=== PATIENT | female | born 1945 | race Caucasian/White ===

== ENCOUNTER 2022-08-14 06:26 | Observation (INO) ==
[2022-08-14] MEDS ORDERED: dilTIAZem HCl 5 MG/ML 5 ML VIAL IV STA (06:46)
[2022-08-14] MEDS ORDERED: STAT IV Infusion **Titration per Protocol STA (06:46)
--- NOTE | 2022-08-14 06:51 | Emergency Department Note ---
Impression & Plan Paroxysmal atrial fibrillation with RVR, Chest pain ED Provider Note NAME: CRISTINA CORNELIUS AGE: 77 SEX: F : 1945 ARRIVES VIA: Walk-In INFORMANT: Patient ED PROVIDER(S): Kvng Donaldson DO CHIEF COMPLAINT: irregular heart beat HPI: Patient is a 77-year-old female with a past medical history of A-fib and a Watchman procedure with 1 previous ablation performed back in 2018 that presents to the ER for irregular heartbeat. She notes she gets this sometimes about twice a month. Sometimes it resolves on her own. She notes she can feel the beats and she can feel her heart racing. It feels irregular. This started as she was sitting in the parking lot waiting to go into work about an hour ago. She notes the beats are slightly painful. She denies any shortness of breath arm or jaw pain. No belly pain, nausea, vomiting, or diarrhea. No dysuria, urgency, or frequency. No other exacerbating or remitting factors. PAST MEDICAL HISTORY:See Below PAST SURGICAL HISTORY:See Below FAMILY HISTORY:See Below SOCIAL HISTORY:See Below HOME MEDICATIONS:See Below ALLERGIES:See Below VITALS:See Below PHYSICAL EXAMINATION: GENERAL: Sitting up in bed, alert, well appearing, well nourished, no distress, non-toxic EYE EXAM: normal conjunctiva. OROPHARYNX: mucous membranes are moist LUNGS: Clear to auscultation. Normal chest wall mechanics HEART: Irregularly irregular S1 normal and S2 normal ABDOMEN: abdomen soft, non-tender, normo-active bowel sounds, no masses, no rebound or guarding. UPPER EXTREMITIES: upper extremities are grossly normal. LOWER EXTREMITIES: No pitting edema. NEURO EXAM: Normal sensorium, cranial nerves II-XII grossly intact, normal speech, no gross weakness of arms, no gross weakness of legs. MEDICAL DECISION MAKING: Patient is a 77-year-old female who presents the ER for feeling her heart race associated with an irregular heartbeat. IV was established blood work was obtained. She was placed on a Cardizem drip and bolus. Heart rate trended down from the 130s to the 90s. Labs show no significant leukocytosis or anemia. BMP along with LFTs bilirubin was unremarkable. Initial troponin was negative. Lipase was normal. Heart rate was in the 140s and she was placed on Cardizem drip and given a bolus. The trend down to the 90s. Remained in A-fib. She was updated bedside. Discussed with the hospitalist admitted for further work-up. Triage Nursing notes reviewed. Limited review of prior medical records performed Vital Signs: reviewed and remarkable for tachy Differential diagnosis: Cardiac ischemia, aortic dissection, pulmonary embolism, pneumothorax, pneumon ia, pericarditis, myocarditis, esophageal rupture, GERD, cholecystitis, pancreatitis, musculoskeletal, as well as other pathologies. ER treatment provided: See below Diagnostics interpreted by me include EKG and cardiac monitoring as listed below: -Cardiac Monitoring: An order was placed for continuous cardiac monitoring. The monitor shows a rate of 134 with AFIB rhythm. -ECG: A-fib rate of 112 Normal axis No PVCs QTc [address] wave changes in the inferior leads -Laboratory studies:Interpreted by me as stated above in MDM and shown below. Imaging studies: Xrays: As interpreted by me: Portable AP upright 1 view of the chest shows no focal infiltrate CTs show: none Consultation(s): As described in MDM Procedures:none Critical Care: I have personally spent 32 minutes of critical care time in the direct management of this patient. This includes bedside care, interpretation of diagnostic studies, and testing, discussion with consultants, patient, and family members, and other required patient management activities. This 32 minutes is in excess of all separately billable procedures. Past Med/Surg History Medical History Adhesion of abdominal wall Perforated bowel Presence of Watchman left atrial appendage closure device Sacral lesion Surgical History History of cardiac radiofrequency ablation History of herniorrhaphy Hx of appendectomy Status post cholecystectomy Social History Smoking Status: Never smoker Feels Safe at Home: Yes Allergies Allergies Allergy/AdvReac Type Severity Reaction Status Date / Time azithromycin [From Zithromax] Allergy Severe Bad rash Unverified 08/14/22 09:30 and hard time breathing moxifloxacin [From Avelox] Allergy Severe Bad rash Unverified 08/14/22 09:31 and hard time breathing lubiprostone [From Amitiza] AdvReac made her Unverified 08/14/22 09:33 sick Jasipda-VFQ-[id number] Reductase AdvReac loss of Unverified 08/14/22 09:35 Inhibitor muscle control- hard to walk Home Meds Home Medications Medication Instructions Recorded Confirmed aspirin 81 mg tablet,delayed 81 mg PO DAILY 08/14/22 08/14/22 release diltiazem HCl 120 mg 120 mg PO DAILY 08/14/22 08/14/22 capsule,extended release 24 hr (Cartia XT) glimepiride 1 mg tablet 1 mg PO DAILY 08/14/22 08/14/22 hydrochlorothiazide 25 mg tablet 25 mg PO DAILY 08/14/22 08/14/22 losartan 50 mg tablet 50 mg PO DAILY 08/14/22 08/14/22 magnesium oxide 400 mg PO DAILY 08/14/22 08/14/22 metformin 500 mg tablet,extended 1,000 mg PO QAM 08/14/22 08/14/22 release 24 hr metoprolol succinate 50 mg 50 mg PO DAILY 08/14/22 08/14/22 tablet,extended release 24 hr potassium chloride 10 mEq 30 meq PO BID 08/14/22 08/14/22 capsule,extended release Results & Data (ED) Vital Signs Vital Signs - 24 hr 08/14/22 06:32 08/14/22 06:50 08/14/22 06:50 Temperature 36.8 C Temperature Source Temporal Artery Scan Pulse Rate 112 H Pulse Rate from SpO2 Sensor Respiratory Rate 20 Respiratory Effort / Characteristics Non-Labored Non-Labored Spontaneous Respiratory Depth Normal Normal Respiratory Pattern Regular Blood Pressure 156/76 H Blood Pressure Mean 102 Pulse Oximetry 98 97 Oxygen Delivery Method Room Air Room Air Room Air Sepsis Recent Fever Within 48 Hours No Sepsis New/Unexplained Change in Mental Status N/A Sepsis Action Taken by Nursing No Action Required 08/14/22 06:52 08/14/22 07:00 08/14/22 07:06 Temperature Temperature Source Pulse Rate 136 H 113 H 109 H Pulse Rate from SpO2 Sensor 107 H Respiratory Rate 20 16 33 H Respiratory Effort / Characteristics Respiratory Depth Respiratory Pattern Blood Pressure Blood Pressure Mean Pulse Oximetry 97 Oxygen Delivery Method Room Air Sepsis Recent Fever Within 48 Hours Sepsis New/Unexplained Change in Mental Status Sepsis Action Taken by Nursing 08/14/22 07:06 08/14/22 07:30 08/14/22 07:30 Temperature Temperature Source Pulse Rate 97 H Pulse Rate from SpO2 Sensor 96 H Respiratory Rate 17 Respiratory Effort / Characteristics Respiratory Depth Respiratory Pattern Blood Pressure 163/116 H 144/84 H Blood Pressure Mean 131 104 Pulse Oximetry 98 Oxygen Delivery Method Room Air Sepsis Recent Fever Within 48 Hours Sepsis New/Unexplained Change in Mental Status Sepsis Action Taken by Nursing 08/14/22 08:00 08/14/22 08:00 08/14/22 08:30 Temperature Temperature Source Pulse Rate 93 H 103 H Pulse Rate from SpO2 Sensor 101 H 110 H Respiratory Rate 14 21 Respiratory Effort / Characteristics Respiratory Depth Respiratory Pattern Blood Pressure 151/121 H 192/139 H Blood Pressure Mean 131 156 Pulse Oximetry 97 98 Oxygen Delivery Method Sepsis Recent Fever Within 48 Hours Sepsis New/Unexplained Change in Mental Status Sepsis Action Taken by Nursing 08/14/22 08:37 08/14/22 08:31 08/14/22 08:31 Temperature Temperature Source Pulse Rate 99 H 106 H Pulse Rate from SpO2 Sensor 111 H Respiratory Rate Respiratory Effort / Characteristics Respiratory Depth Respiratory Pattern Blood Pressure 192/139 H Blood Pressure Mean 156 Pulse Oximetry 99 Oxygen Delivery Method Room Air Sepsis Recent Fever Within 48 Hours Sepsis New/Unexplained Change in Mental Status Sepsis Action Taken by Nursing 08/14/22 09:00 08/14/22 09:01 08/14/22 09:01 Temperature Temperature Source Pulse Rate 95 H 92 H Pulse Rate from SpO2 Sensor 91 H 89 Respiratory Rate 24 19 Respiratory Effort / Characteristics Respiratory Depth Respiratory Pattern Blood Pressure 168/92 H Blood Pressure Mean 117 Pulse Oximetry 96 99 Oxygen Delivery Method Room Air Room Air Sepsis Recent Fever Within 48 Hours Sepsis New/Unexplained Change in Mental Status Sepsis Action Taken by Nursing 08/14/22 09:30 08/14/22 09:31 08/14/22 09:31 Temperature Temperature Source Pulse Rate 89 94 H Pulse Rate from SpO2 Sensor 67 90 Respiratory Rate 13 13 Respiratory Effort / Characteristics Respiratory Depth Respiratory Pattern Blood Pressure 192/92 H Blood Pressure Mean 125 Pulse Oximetry 95 98 Oxygen Delivery Method Room Air Room Air Sepsis Recent Fever Within 48 Hours Sepsis New/Unexplained Change in Mental Status Sepsis Action Taken by Nursing 08/14/22 10:00 08/14/22 10:01 08/14/22 10:01 Temperature Temperature Source Pulse Rate 78 82 Pulse Rate from SpO2 Sensor 67 80 Respiratory Rate 12 16 Respiratory Effort / Characteristics Respiratory Depth Respiratory Pattern Blood Pressure 139/83 Blood Pressure Mean 101 Pulse Oximetry 97 98 Oxygen Delivery Method Room Air Room Air Sepsis Recent Fever Within 48 Hours Sepsis New/Unexplained Change in Mental Status Sepsis Action Taken by Nursing 08/14/22 10:30 08/14/22 10:31 08/14/22 10:31 Temperature Temperature Source Pulse Rate 82 84 Pulse Rate from SpO2 Sensor 89 79 Respiratory Rate 20 18 Respiratory Effort / Characteristics Respiratory Depth Respiratory Pattern Blood Pressure 171/91 H Blood Pressure Mean 117 Pulse Oximetry 96 98 Oxygen Delivery Method Room Air Room Air Sepsis Recent Fever Within 48 Hours Sepsis New/Unexplained Change in Mental Status Sepsis Action Taken by Nursing Laboratory Data 08/14/22 07:00 08/14/22 07:00 Lab Results 08/14/22 08/14/22 08/14/22 Range/Units 07:00 07:00 07:30 WBC 9.27 (4.8-10.8) K/ul RBC 4.75 (4.20-5.40) M/uL Hgb 13.8 (12.0-16.0) g/dl Hct 39.8 (37.0-47.0) % MCV 83.8 (80.0-100.0) fL MCH 29.1 (25.0-34.0) pg MCHC 34.7 (32.0-36.0) g/dL RDW Std Deviation 39.2 (36.4-46.3) fL RDW Coeff of Maribell 12.9 (11.5-14.5) % Plt Count 278 (130-400) K/uL MPV 10.2 (9.4-12.4) fL Immature Gran % (Auto) 0.4 % Neut % (Auto) 64.7 % Lymph % (Auto) 24.7 % [place] % (Auto) 7.8 % Eos % (Auto) 1.6 % Baso % (Auto) 0.8 % Neut # (Auto) 6.00 (1.40-6.50) K/uL Lymph # (Auto) 2.29 (1.2-3.4) K/uL [place] # (Auto) 0.72 H (0.11-0.59) K/uL Eos # (Auto) 0.15 (0-0.50) K/uL Baso # (Auto) 0.07 (0-0.2) K/uL Immature Gran # (Auto) 0.04 (0.01-0.20) K/uL Sodium 139 (136-145) mmol/L Potassium 3.6 (3.5-5.1) mmol/L Chloride 104 (98-107) mmol/L Carbon Dioxide 24 (21-32) mmol/L Anion Gap 11 (3-11) BUN 18 (6-23) mg/dl Creatinine 0.77 (0.6-1.2) mg/dl Est Cr Clr Drug Dosing 60.6 ml/min Est GFR ( Amer) 86.3 ml/min Est GFR (Non-Af Amer) 74.5 ml/min BUN/Creatinine Ratio 23.4 H (10-20) Glucose 215 H (70-99(Fasting)) mg/dl Calcium 10.2 (8.6-10.3) mg/dl Magnesium (1.7-2.4) mg/dl Total Bilirubin 0.4 (0.2-1.0) mg/dl AST 30 (13-39) U/L ALT 31 (7-52) U/L Alkaline Phosphatase 81 (34-104) U/L Troponin I High Sens 11.7 (0-14) pg/ml Total Protein 7.3 (6.0-8.3) gm/dl Albumin 4.5 (3.4-5.0) gm/dl Globulin 2.8 (2.5-4.0) gm/dl Albumin/Globulin Ratio 1.6 (0.9-2) Lipase 24 (11-82) U/L SARS-CoV-2, RNA, NAAT NEGATIVE (NEGATIVE) 08/14/22 Range/Units 10:25 WBC (4.8-10.8) K/ul RBC (4.20-5.40) M/uL Hgb (12.0-16.0) g/dl Hct (37.0-47.0) % MCV (80.0-100.0) fL MCH (25.0-34.0) pg MCHC (32.0-36.0) g/dL RDW Std Deviation (36.4-46.3) fL RDW Coeff of [place]ib[place] (11.5-14.5) % Plt Count (130-400) K/uL MPV (9.4-12.4) fL Immature Gran % (Auto) % Neut % (Auto) % Lymph % (Auto) % [place] % (Auto) % Eos % (Auto) % Baso % (Auto) % Neut # (Auto) (1.40-6.50) K/uL Lymph # (Auto) (1.2-3.4) K/uL [place] # (Auto) (0.11-0.59) K/uL Eos # (Auto) (0-0.50) K/uL Baso # (Auto) (0-0.2) K/uL Immature Gran # (Auto) (0.01-0.20) K/uL Sodium (136-145) mmol/L Potassium (3.5-5.1) mmol/L Chloride (98-107) mmol/L Carbon Dioxide (21-32) mmol/L Anion Gap (3-11) BUN (6-23) mg/dl Creatinine (0.6-1.2) mg/dl Est Cr Clr Drug Dosing ml/min Est GFR ( Amer) ml/min Est GFR (Non-Af Amer) ml/min BUN/Creatinine Ratio (10-20) Glucose (70-99(Fasting)) mg/dl Calcium (8.6-10.3) mg/dl Magnesium 1.8 (1.7-2.4) mg/dl Total Bilirubin (0.2-1.0) mg/dl AST (13-39) U/L ALT (7-52) U/L Alkaline Phosphatase (34-104) U/L Troponin I High Sens 17.6 H D (0-14) pg/ml Total Protein (6.0-8.3) gm/dl Albumin (3.4-5.0) gm/dl Globulin (2.5-4.0) gm/dl Albumin/Globulin Ratio (0.9-2) Lipase (11-82) U/L SARS-CoV-2, RNA, NAAT (NEGATIVE) Administered Medications Diltiazem HCl 125 mg/ Dextrose 125 mls @ 5 mls/hr IV .Q24H [facility]; Protocol Stop: 09/13/22 06:59 Last Titration: 08/14/22 08:54 Dose: 10 mg/hr, 10 mls/hr Documented By: PEE Co-signed By: Admin: 08/14/22 07:20 Dose: 5 mg/hr, 5 mls/hr Documented By: PEE Co-signed By: KATELYN Discontinued Medications Diltiazem HCl (Diltiazem Hcl 5 Mg/Ml 5 Ml Vial) 10 mg IV NOW STA Stop: 08/14/22 06:47 Last Admin: 08/14/22 07:20 Dose: 10 mg Documented By: PEE Co-signed By: KATELYN Miscellaneous (Stat Iv Infusion Titration Per Protocol) 1 each N/A NOW STA Stop: 08/14/22 06:47 Last Admin: 08/14/22 07:16 Dose: Not Given Documented By: PEE Imaging Data Radiologist's Impression: Chest X-Ray 08/14/22 06:37 XR chest 1V portable CLINICAL HISTORY: Chest pain, nonspecific COMPARISON STUDY: No previous studies for comparison. FINDINGS: Lung volumes are normal. There is no consolidation to suggest pneumonia. Linear bibasilar densities favor atelectasis. There is no pneumothorax or pleural effusion. There is mild cardiomegaly. Possible left atrial appendage occluder device in place. Mediastinal contours are normal. There is no evidence for pulmonary edema. IMPRESSION: No acute cardiopulmonary findings. ACT 112: Negative or not required by law. Electronically signed by: Joey Mckenna M.D. 08/14/2022 6:54 AM Discharge Plan Visit Data Chief Complaint: Tachycardia Stated Complaint: A FIB,HEART RATE UP AND DOWN MEDS NOT HELPING ED Provider: Kvng Donaldson Discharge Problem: Paroxysmal atrial fibrillation with RVR, Chest pain Forms Stand Alone Forms: My [facility] Prescriptions Prescriptions: No Action losartan 50 mg tablet 50 mg PO DAILY potassium chloride 10 mEq capsule, extended release 30 meq PO BID metoprolol succinate 50 mg tablet extended release 24 hr 50 mg PO DAILY aspirin 81 mg Tablet,Delayed Release (Dr/Ec) 81 mg PO DAILY glimepiride 1 mg tablet 1 mg PO DAILY diltiazem HCl [Cartia XT] 120 mg capsule,extended release 24hr 120 mg PO DAILY hydrochlorothiazide 25 mg tablet 25 mg PO DAILY metformin 500 mg tablet extended release 24 hr 1,000 mg PO QAM magnesium oxide 400 mg magnesium Tablet 400 mg PO DAILY Referrals Referrals: PCP,NO [Physician] -
--- NOTE | 2022-08-14 06:56 | XRay Report ---
XR chest 1V portable CLINICAL HISTORY: Chest pain, nonspecific COMPARISON STUDY: No previous studies for comparison. FINDINGS: Lung volumes are normal. There is no consolidation to suggest pneumonia. Linear bibasilar d ensities favor atelectasis. There is no pneumothorax or pleural effusion. There is mild cardiomegaly. Possible left atrial appendage occluder device in place. Mediastinal contours are normal. There is n o evidence for pulmonary edema. IMPRESSION: No acute cardiopulmonary findings. ACT 112: Negative or not required by law. Electronically signed by: Joey Mckenna M.D. 08/14/2022 6:54 AM
[2022-08-14] MEDS ORDERED: dilTIAZem HCL 125 MG in DEXTROSE 5% 100 ML IV SCH (07:00)
[2022-08-14 07:40] LABS: Basophils # (auto) 0.07 K/uL (0-0.2); Basophils % (auto) 0.8 %; Eosinophils # (auto) 0.15 K/uL (0-0.50); Eosinophils % (auto) 1.6 %; Hematocrit (blood only) 39.8 % (37.0-47.0); Hemoglobin 13.8 g/dl (12.0-16.0); Immature Granulocytes # (auto) 0.04 K/uL (0.01-0.20); Immature Granulocytes % (auto) 0.4 %; Lymphocytes # (auto) 2.29 K/uL (1.2-3.4); Lymphocytes % (auto) 24.7 %; Mean Corpuscular Hemoglobin 29.1 pg (25.0-34.0); Mean Corpuscular Hgb Conc 34.7 g/dL (32.0-36.0); Mean Corpuscular Volume 83.8 fL (80.0-100.0); Mean Platelet Volume 10.2 fL (9.4-12.4); Monocytes # (auto) 0.72 K/uL (0.11-0.59); Monocytes % (auto) 7.8 %; Neutrophils % (auto) 64.7 %; Platelet Count 278 K/uL (130-400); RDW Coefficient of Variation 12.9 % (11.5-14.5); RDW Standard Deviation 39.2 fL (36.4-46.3); Red Blood Count 4.75 M/uL (4.20-5.40); White Blood Count 9.27 K/ul (4.8-10.8)
[2022-08-14 07:44] LABS: Albumin Globulin Ratio 1.6 (0.9-2); Albumin Level 4.5 gm/dl (3.4-5.0); BUN Creatinine Ratio 23.4 (10-20); Bilirubin,Total 0.4 mg/dl (0.2-1.0); Calcium 10.2 mg/dl (8.6-10.3); Creatinine Clr Calc Pharmacy 60.6 ml/min; Est GFR (African American) 86.3 ml/min; Est GFR (Non-African American) 74.5 ml/min; Globulin 2.8 gm/dl (2.5-4.0); Potassium 3.6 mmol/L (3.5-5.1); Total Protein 7.3 gm/dl (6.0-8.3)
[2022-08-14 07:49] LABS: Troponin I High Sensitivity 11.7 pg/ml (0-14)
--- NOTE | 2022-08-14 08:47 | History & Physical Report ---
Date of Service August 14, 2022 Assessment & Plan (1) Paroxysmal atrial fibrillation with RVR: Plan: 77 year old [employer] with a past medical history of paroxysmal A Fib with ablation in 2007 and watchman procedure in July 2021, HTN, and DM who is also scheduled for an ablation 09/19/[address] Morris and a repeat ALBINA 10/18/[address] Angeles, here with rapid atrial fibrillation Admit to PCU - Consult cardiology - Echocardiogram - trend troponins - Increase Cartia XT to 180mg daily - Patient had the 120mg dose this AM, will add extra 30mg TID today with first dose now - Wean off cardizem drip - Monitor Potassium and Magnesium, labs (2) Diabetes: Plan: - Will hold home metformin and glimiperide - ISS while admitted - Pharmacy consult for glycemic control - HgbA1C with AM labs - Lantus 8U BID, Novolog sliding scal with correction factor 55 and carb ratio 18 (3) HTN (hypertension): Plan: BPs quite elevated on admission an dhave been high at times as an outpatient - Continue Losartan, metoprolol and HCTZ - Cartia XT changes as above Plan Admit to PCU SCD. ASA 81 mg daily plan to increase Cartia XT to 180mg Cardiology consult echo, trend troponin, cardiac monitoring History of Present Illness Chief Complaint: heart palpitations and chest pain Primary Care Provider: Jaciel Kelly Blossom Barrientos is a 77 year old with a past medical history of paroxysmal A Fib with ablation in 2007 and watchman procedure in July 2021, HTN, and DM who was waiting to go into work today when she began to experience irregular heart palpitations and chest discomfort. She states she gets the palpitations and A Fib episode approximately 2 x per month and follows with Dr Angeles and Dr Morris in [place] and is scheduled for an ablation September 19 and a ALBINA 10/18/22. Patients she went into work and had a RN check her and her heart rate was raising to 200 -210 and she was scared and had an aide take her here to the ER. She states when she has the episodes of the A Fib her chest hurts and her symptoms are worse with exertion. Patient was treated with Cardizem bolus and drip and currently hr rate is in mid to low 90s and she states she no longer has any further chest pain. Patient is not on any watermaster anticoagulation, s/p Watchman and also patient states she was unable to tolerate Eliquis an Plavix in the past. Allergies Allergy/AdvReac Type Severity Reaction Status Date / Time azithromycin [From Zithromax] Allergy Severe Bad rash Unverified 08/14/22 09:30 and hard time breathing moxifloxacin [From Avelox] Allergy Severe Bad rash Unverified 08/14/22 09:31 and hard time breathing lubiprostone [From Amitiza] AdvReac made her Unverified 08/14/22 09:33 sick Dyuwlkl-[id number] Reductase AdvReac loss of Unverified 08/14/22 09:35 Inhibitor muscle control- hard to walk Home Medications Medication Instructions Recorded Confirmed Type aspirin 81 mg tablet,delayed 81 mg PO DAILY 08/14/22 08/14/22 History release diltiazem HCl 120 mg 120 mg PO DAILY 08/14/22 08/14/22 History capsule,extended release 24 hr (Cartia XT) glimepiride 1 mg tablet 1 mg PO DAILY 08/14/22 08/14/22 History hydrochlorothiazide 25 mg tablet 25 mg PO DAILY 08/14/22 08/14/22 History losartan 50 mg tablet 50 mg PO DAILY 08/14/22 08/14/22 History magnesium oxide 400 mg PO DAILY 08/14/22 08/14/22 History metformin 500 mg tablet,extended 1,000 mg PO QAM 08/14/22 08/14/22 History release 24 hr metoprolol succinate 50 mg 50 mg PO DAILY 08/14/22 08/14/22 History tablet,extended release 24 hr potassium chloride 10 mEq 30 meq PO BID 08/14/22 08/14/22 History capsule,extended release Past Med/Surg History Medical History (Updated 08/14/22 @ 17:35 by Meaghan Mendoza MD) Adhesion of abdominal wall Diabetes HTN (hypertension) Paroxysmal A-fib Paroxysmal atrial fibrillation with RVR Perforated bowel Presence of Watchman left atrial appendage closure device Sacral lesion Surgical History History of cardiac radiofrequency ablation History of herniorrhaphy Hx of appendectomy Status post cholecystectomy Family History Other Family history non-contributory Social History Smoking Status: Never smoker Second Hand Exposure: No; Hx Alcohol Use: No Hx Substance Use: No Preferred Language: Turkish Communication Ability: Effective Quality Assurance Assessor Required: No Beliefs That Will Affect Care: None Current Living Situation: Family Feels Safe at Home: Yes Assistive Devices: Glasses Review of Systems Constitutional: + fatigue; no fever, no chills, no weakness, no weight loss and no weight gain Respiratory: no cough, no chest congestion, no dyspnea and no hemoptysis Cardiovascular: + chest pain and + palpitations; no radiating jaw, neck or arm pain, no lightheadedness, no syncope, no edema and no calf pain Gastrointestinal: no abdominal pain, no early satiety, no nausea, no vomiting and no change in bowel habits Genitourinary: no dysuria, no urinary frequency, no urinary hesitancy and no flank pain Musculoskeletal: hx of a sacral lesion that was recently biopsied and awaiting the results Integumentary: no rash, no lesions and no new lesions Neurologic: no falls, no paresthesia, no tremor(s), no seizure-like activity, no syncope and no headache(s) Psychiatric: no hopelessness, no anxiety, no panic attacks, no difficulty concentrating and no confusion Hematologic / Lymphatic: no easy bleeding, no easy bruising, no night sweats and no unexplained weight loss Allergy / Immunological: no urticaria, no cough and no dyspnea Physical Exam Constitutional: well developed, well nourished and cooperative; no acute distress Neck: trachea midline, no thyromegaly Respiratory: normal respiratory effort, lungs clear to auscultation Cardiovascular: Rate/Rhythm: + tachycardic and + irregularly irregular Extremities: normal capillary refill; no calf tenderness and no edema Gastrointestinal (Abdomen): normal bowel sounds, soft, nontender, no hepatosplenomegaly Skin: no rashes, warm and dry Psychiatric: A+Ox3, euthymic affect Results & Data Results & Data Vital Signs (Past 12 Hours) Vital Signs Temp Pulse Resp BP Pulse Ox O2 Del Method 08/14/22 08:37 99 H 08/14/22 08:30 103 H 21 192/139 H 98 08/14/22 08:00 93 H 14 97 06/21/23 08:00 151/121 H 08/14/22 07:30 97 H 17 98 Room Air 08/14/22 07:30 144/84 H 08/14/22 07:06 163/116 H 08/14/22 07:06 109 H 33 H 97 Room Air 08/14/22 07:00 113 H 16 08/14/22 06:52 136 H 20 08/14/22 06:50 Room Air 08/14/22 06:50 97 Room Air 08/14/22 06:32 36.8 C 112 H 20 156/76 H 98 Room Air Laboratory Results Abnormal lab results 08/14/22 08/14/22 Range/Units 07:00 07:00 [place] # (Auto) 0.72 H (0.11-0.59) K/uL BUN/Creatinine Ratio 23.4 H (10-20) Glucose 215 H (70-99(Fasting)) mg/dl Diagnostic Findings Chest X-Ray 08/14/22 06:37 XR chest 1V portable CLINICAL HISTORY: Chest pain, nonspecific COMPARISON STUDY: No previous studies for comparison. FINDINGS: Lung volumes are normal. There is no consolidation to suggest pneumonia. Linear bibasilar densities favor atelectasis. There is no pneumothorax or pleural effusion. There is mild cardiomegaly. Possible left atrial appendage occluder device in place. Mediastinal contours are normal. There is no evidence for pulmonary edema. IMPRESSION: No acute cardiopulmonary findings. ACT 112: Negative or not required by law. Electronically signed by: Joey Mckenna M.D. 08/14/2022 6:54 AM ECG Additional Comments: ECG with Afib, rate 112, ST depression in leads 1 and aVL Code Status & VTE Plan Code Status FULL CODE VTE Prophylaxis Plan VTE Prophylaxis will be ordered: Yes Supervising Physician Co-Signing Physician Notes PA Supervision Note: I personally saw and examined the patient. I verified all barron points and agree with ROSE Teran with the following exceptions and/or additions: S-Pt is a 77 yo female with a h/o PAF, HTN, and DMII, here with symptomatic rapid afib, rates in 200s prior to arrival and in 140s here. Had associated chest pain that resolved as soon as rates were better controlled. No SOB, lightheadedness. Feels better now with controlled rates on diltiazem gtt. History and ROS reviewed otherwise as above O- Vitals reviewed Gen: [AAOx3, NAD] HEENT: [anicteric sclerae, EOMI] CV: [irreg irreg, rapid rate, no mgr nl S1S2] Pulm: [CTAB no wcr] Abd: [+BS soft NT ND no masses or hernias] Ext: [+trace pitting edema ankles and distal legs bilat] Skin: [no rashes, warm/dry] Neuro: [full strength throughout] Labs, Rads, and ECG reviewed A/P-77 yo female here with rapid atrial fibrillation Discussed case with Cardiology Plan is to wean off dilt gtt, start po dilt 30mg po tid for today and then increase Dilt ER to 180mg po daily tomorrow ate control strategy as is having ablation in 4 weeks no anticoag due to intolerance to blood thinners-did not like easy bleeding or risk of bleeding continue home po KCl and consider increasing dose or dc HCTZ as hypokalemia may contribute to Afib Check Magnesium and replace to keep above 2.0 HTN-BPs quite high-increasing dilt and if not improving, could increase losartan to 100mg daily advised compression stockings when on feet wt work for edema PG Care Time/CCT Total # of Minutes Spent Total Time Spent with Patient: Total time spent is greater than 50% in coordination of care (as documented) at patient's floor/unit and/or counseling patient: Coding Level of Care Code 51824 INT INP/OBS CARE 3/75MIN Diagnoses Paroxysmal atrial fibrillation with RVR I48.0 Diabetes E11.9 HTN (hypertension) I10
[2022-08-14 11:15] LABS: Magnesium 1.8 mg/dl (1.7-2.4)
[2022-08-14 11:23] LABS: Troponin I High Sensitivity 17.6 pg/ml (0-14)
[2022-08-14] MEDS ORDERED: DEXTROSE 50% 50 ML SYRINGE IV PRN (13:26)
[2022-08-14] MEDS ORDERED: CARBOHYDRATES FOR HYPOGLYCEMIA PO PRN (13:26)
[2022-08-14] MEDS ORDERED: GLUCOSE 40% GEL 15 GM TUBE PO PRN (13:26)
[2022-08-14] MEDS ORDERED: GLUCAGON FOR INJ 1 MG VIAL SQ PRN (13:26)
[2022-08-14] MEDS ORDERED: PHARMACY GLYCEMIC MGMT CONSULT PRN (13:26)
[2022-08-14] MEDS ORDERED: GLUCOSE 10 TAB/TUBE PO PRN (13:26)
[2022-08-14] MEDS ORDERED: MAGNESIUM SULFATE / D5W 1 GM/100 ML BAG IV ONE (13:45)
--- NOTE | 2022-08-14 13:51 | XCELERA ---
[id number] \\[id number]
--- NOTE | 2022-08-14 14:50 | Pharmacy Report ---
Pharmacy Glycemic Short Note 2 - Date of Service August 14, 2022 - Glycemic Short BSG Results (Last 24 hours): 08/14/22 08/14/22 07:00 14:43 Glucose 215 H POC Glucose 110 H OUTPATIENT ANTIDIABETIC REGIMEN: * metformin 1000 mg PO daily * Amaryl 1 mg daily ASSESSMENT: * Ms Barrientos is a 77 y/o F with a PMH of T2DM who presents with afib with RVR. * Patient's BSG in admitting PRP was 215 mg/dL. POC BSG at 1400 once patient arrived to the floor was 110 mg/dL. There is no HbA1C on record; it is currently ordered for tomorrow morning. * Will begin weight-based therapy. * Novolog weight-based stress of 2. * Lantus scale with a hold plus weight-based stress of 1 and 2 as options. PLAN FOR INPATIENT GLYCEMIC CONTROL: * Hold outpatient oral diabetes medications * Basal insulin * Lantus 0-15 units SQ BID * Bolus insulin * NovoLog per scale ACHS or Q6hrs while NPO * Goal Range: Low 110 mg/dL - High 140 mg/dL * Correction Factor: 25 mg/dL/unit * Nutritional / Prandial insulin per carb ratio of 1 unit per 8 grams CHO consumed
--- NOTE | 2022-08-14 15:08 | Cardiology Consultation ---
Date of Consultation August 14, 2022 Assessment & Plan (1) Paroxysmal atrial fibrillation with RVR: -ventricular response now well controlled on increased dose of long-acting diltiazem and a diltiazem drip. -hopefully, she will spontaneously convert to sinus rhythm. -not on long-term anticoagulation as she has a Watchman device. -scheduled undergo repeat radiofrequency ablation on September 19. -scheduled undergo a ALBINA to evaluate her Watchman device in September. (2) HTN (hypertension): -adequate control on current regimen. History of Present Illness Attending Physician: Meaghan Mendoza MD History of Present Illness Mrs. Barrientos is a 77-year-old female admitted earlier today with atrial fibrillation and a rapid ventricular response. This consultation was ordered to assist in her cardiac management. Of note, patient typically follows with Dr. Angeles and Dr. Morris in [place]. The patient was in usual state of health until this morning while seated her car waiting to went to work. She began to note a typical episode of her paroxysmal atrial fibrillation. As she walked into the building, her heart rate accelerated up to 200 beats per minute range. She was evaluated by 1 of the nurses and then sent to the emergency room for further care. The patient has longstanding history of paroxysmal atrial fibrillation. She underwent a radiofrequency ablation back in 2007. She is scheduled undergo repeat ablation on September [address] Garcia. She does not take long-term anticoagulation as she had a Watchman device placed in July 2021. She is scheduled undergo a ALBINA in September with Dr. Angeles to evaluate her device. The patient was placed on intravenous diltiazem in the emergency room, and fortunately, her heart rate is now well controlled. Past medical and surgical history 1. Hypertension 2. Hypercholesterolemia-statin intolerant 3. Paroxysmal atrial fibrillation 4. Radiofrequency ablation-2007 5. Watchman device-July 2021 6. Diabetes mellitus 7. Hearing deficit 8. Appendectomy 9. Cholecystectomy 10. Hernia repair 11. 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 Allergies Allergy/AdvReac Type Severity Reaction Status Date / Time azithromycin [From Zithromax] Allergy Severe Bad rash Unverified 08/14/22 09:30 and hard time breathing moxifloxacin [From Avelox] Allergy Severe Bad rash Unverified 08/14/22 09:31 and hard time breathing lubiprostone [From Amitiza] AdvReac made her Unverified 08/14/22 09:33 sick Srdxbct-QPU-[id number] Reductase AdvReac loss of Unverified 08/14/22 09:35 Inhibitor muscle control- hard to walk Home Medications Medication Instructions Recorded Confirmed Type aspirin 81 mg tablet,delayed 81 mg PO DAILY 08/14/22 08/14/22 History release diltiazem HCl 120 mg 120 mg PO DAILY 08/14/22 08/14/22 History capsule,extended release 24 hr (Cartia XT) glimepiride 1 mg tablet 1 mg PO DAILY 08/14/22 08/14/22 History hydrochlorothiazide 25 mg tablet 25 mg PO DAILY 08/14/22 08/14/22 History losartan 50 mg tablet 50 mg PO DAILY 08/14/22 08/14/22 History magnesium oxide 400 mg PO DAILY 08/14/22 08/14/22 History metformin 500 mg tablet,extended 1,000 mg PO QAM 08/14/22 08/14/22 History release 24 hr metoprolol succinate 50 mg 50 mg PO DAILY 08/14/22 08/14/22 History tablet,extended release 24 hr potassium chloride 10 mEq 30 meq PO BID 08/14/22 08/14/22 History capsule,extended release Patient History Medical History Adhesion of abdominal wall Perforated bowel Presence of Watchman left atrial appendage closure device Sacral lesion Surgical History History of cardiac radiofrequency ablation History of herniorrhaphy Hx of appendectomy Status post cholecystectomy Social History Smoking Status: Never smoker Second Hand Exposure: No; Hx Alcohol Use: No Hx Substance Use: No Preferred Language: Wolof Communication Ability: Effective Acquisition Professional Required: No Beliefs That Will Affect Care: None Current Living Situation: Family Feels Safe at Home: Yes Assistive Devices: Glasses Physical Exam Physical Exam: In general is well-developed well-nourished white female no acute distress. HEENT exam is negative. Neck is supple with full carotid upstrokes. There are no carotid bruits. Jugular venous pressure is flat at 90. There is no thyromegaly. Cardiovascular exam reveals irregular irregular rhythm with distant heart sounds. No obvious murmurs. Lungs are clear without rales, rhonchi, or wheezes. Abdomen is soft without bruits. Extremities reveal intact radial artery pulses bilaterally. Trace pretibial edema is noted. Results & Data Vital Signs (Past 12 Hours) Vital Signs Temp Pulse Resp BP Pulse Ox O2 Del Method 08/14/22 11:30 72 16 98 Room Air 08/14/22 11:30 146/74 H 08/14/22 11:01 74 19 98 Room Air 08/14/22 11:01 174/82 H 08/14/22 11:00 72 17 97 Room Air 08/14/22 10:31 84 18 98 Room Air 08/14/22 10:31 171/91 H 08/14/22 10:30 82 20 96 Room Air 08/14/22 10:01 82 16 98 Room Air 08/14/22 10:01 139/83 08/14/22 10:00 78 12 97 Room Air 08/14/22 09:31 94 H 13 98 Room Air 08/14/22 09:31 192/92 H 08/14/22 09:30 89 13 95 Room Air 08/14/22 09:01 92 H 19 99 Room Air 08/14/22 09:01 168/92 H 08/14/22 09:00 95 H 24 96 Room Air 08/14/22 08:31 106 H 99 Room Air 08/14/22 08:31 192/139 H 08/14/22 08:37 99 H 08/14/22 08:30 103 H 21 192/139 H 98 08/14/22 08:00 93 H 14 97 08/14/22 08:00 151/121 H 08/14/22 07:30 97 H 17 98 Room Air 08/14/22 07:30 144/84 H 08/14/22 07:06 163/116 H 08/14/22 07:06 109 H 33 H 97 Room Air 08/14/22 07:00 113 H 16 08/14/22 06:52 136 H 20 08/14/22 06:50 Room Air 08/14/22 06:50 97 Room Air 08/14/22 06:32 36.8 C 112 H 20 156/76 H 98 Room Air Laboratory Results CBC notes hemoglobin 13.8, hematocrit 39.8, white count 9.27, and platelet count [id number]. Electrolytes note a sodium of 139, potassium 3.6, chloride 104, bicarb 24, BUN 18, creatinine 0.77, and glucose of 215. Magnesium level is 1.8. Initial high sensitivity troponin was 11.7 with follow-up value of 17.6. Diagnostic Findings Echocardiogram notes normal left ventricular systolic function with ejection fraction of 60-65%. There were no wall motion abnormalities. There was mild LVH. No valvular pathology. EKG notes atrial fibrillation with a rapid ventricular response min and nonspecific ST abnormality. Chest x-ray shows no acute disease. PG Care Time/CCT Total # of Minutes Spent Total Time Spent with Patient: Total time spent is greater than 50% in coordination of care (as documented) at patient's floor/unit and/or counseling patient: Coding Level of Care Code 77831 INT INP/OBS CARE 3/75MIN Diagnoses Paroxysmal atrial fibrillation with RVR I48.0 HTN (hypertension) I10
[2022-08-14] MEDS: INSULIN ASPART PER UNIT CHARGE SC SCH ×3 (15:11→20:31)
--- NOTE | 2022-08-14 15:46 | Electrocardiogram Report ---
Test Reason : Blood Pressure : / mmHG Vent. Rate : 112 BPM Atrial Rate : 000 BPM P-R Int : 000 ms QRS Dur : 088 ms QT Int : 270 ms P-R-T Axes : 000 030 137 degrees QTc Int : 368 ms Atrial fibrillation with rapid ventricular response with premature ventricular or aberrantly conducte d complexes Nonspecific ST abnormality Abnormal ECG No previous ECGs available Confirmed by Parth Adair ([id number]) on 08/14/2022 3:46:00 PM Referred By: Confirmed By:Prath Adair
[2022-08-14] MEDS: dilTIAZem HCL 30 MG TAB PO SCH ×2 (16:57→20:29)
[2022-08-14] MEDS: POTASSIUM CHLORIDE 10 MEQ TABCR PO SCH (20:29)
[2022-08-14] MEDS: LANTUS PER UNIT CHARGE SQ SCH (20:30)
[2022-08-15 05:59] LABS: Hematocrit (blood only) 38.1 % (37.0-47.0); Hemoglobin 13.5 g/dl (12.0-16.0); Mean Corpuscular Hemoglobin 29.2 pg (25.0-34.0); Mean Corpuscular Hgb Conc 35.4 g/dL (32.0-36.0); Mean Corpuscular Volume 82.5 fL (80.0-100.0); Mean Platelet Volume 10.1 fL (9.4-12.4); Platelet Count 277 K/uL (130-400); RDW Coefficient of Variation 13.2 % (11.5-14.5); RDW Standard Deviation 39.4 fL (36.4-46.3); Red Blood Count 4.62 M/uL (4.20-5.40); White Blood Count 9.04 K/ul (4.8-10.8)
[2022-08-15 06:17] LABS: BUN Creatinine Ratio 31.5 (10-20); Calcium 9.5 mg/dl (8.6-10.3); Creatinine Clr Calc Pharmacy 64.5 ml/min; Est GFR (African American) 92.1 ml/min; Est GFR (Non-African American) 79.4 ml/min; Magnesium 1.9 mg/dl (1.7-2.4); Potassium 3.9 mmol/L (3.5-5.1)
[2022-08-15 07:32] LABS: Estimated Average Glucose 157 mg/dl; Hemoglobin A1C 7.1 % (4.5-5.6)
[2022-08-15] MEDS: POTASSIUM CHLORIDE 10 MEQ TABCR PO SCH (08:21)
[2022-08-15] MEDS: LANTUS PER UNIT CHARGE SQ SCH (08:34)
[2022-08-15] MEDS: INSULIN ASPART PER UNIT CHARGE SC SCH ×3 (08:35→16:50)
[2022-08-15] MEDS ORDERED: hydroCHLOROthiazide 25 MG TAB PO SCH (09:00)
[2022-08-15] MEDS ORDERED: METOPROLOL SUCC 50MG EXT REL TAB PO SCH (09:00)
[2022-08-15] MEDS ORDERED: dilTIAZem HCL 180 MG CAPCR PO SCH (09:00)
[2022-08-15] MEDS ORDERED: ASPIRIN 81 MG ECTAB PO SCH (09:00)
[2022-08-15] MEDS ORDERED: MAGNESIUM OXIDE 400 MG TAB PO SCH (09:00)
[2022-08-15] MEDS ORDERED: LOSARTAN POTASSIUM 50 MG TAB PO SCH (09:00)
[2022-08-15] MEDS ORDERED: MAGNESIUM SULFATE / D5W 1 GM/100 ML BAG IV ONE (11:00)
--- NOTE | 2022-08-15 11:42 | Cardiology Progress Note ---
Date of Service August 15, 2022 Assessment & Plan (1) Paroxysmal atrial fibrillation with RVR: Plan: -ventricular response now well controlled on increased dose of long-acting diltiazem and metoprolol succinate. -not on long-term anticoagulation as she has a Watchman device. -scheduled to undergo repeat radiofrequency ablation on September 19. -scheduled to undergo a ALBINA to evaluate her Watchman device in September. (2) HTN (hypertension): Plan: -adequate control on current regimen. Admission and Anticipated Discharge Date Admission Date: August 14, 2022 Subjective The patient is resting comfortably in bed without complaints of chest pain, dyspnea, or palpitations. She is anxious for hospital discharge. Physical Exam Physical Exam: In general is well-developed well-nourished white female no acute distress. HEENT exam is negative. Neck is supple with full carotid upstrokes. There are no carotid bruits. Jugular venous pressure is flat at 90. There is no thyromegaly. Cardiovascular exam reveals irregular irregular rhythm with distant heart sounds. No obvious murmurs. Lungs are clear without rales, rhonchi, or wheezes. Abdomen is soft without bruits. Extremities reveal intact radial artery pulses bilaterally. Trace pretibial edema is noted. 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 PG Care Time/CCT Total # of Minutes Spent Total Time Spent with Patient: Total time spent is greater than 50% in coordination of care (as documented) at patient's floor/unit and/or counseling patient: Coding Level of Care Code 36604 SUB INP/OBS CARE 3/50MIN Diagnoses Paroxysmal atrial fibrillation with RVR I48.0 HTN (hypertension) I10
--- NOTE | 2022-08-15 12:36 | Discharge Summary ---
Discharge Summary Date of Service August 15, 2022 Notes For Next Care Provider Medication Changes From Visit Increased diltiazem to 180mg po daily Increased magnesium to 400mg po bid Admission HPI Per Admitting Provider Blossom Barrientos is a 77 year old with a past medical history of paroxysmal A Fib with ablation in 2007 and watchman procedure in July 2021, HTN, and DM who was waiting to go into work today when she began to experience irregular heart palpitations and chest discomfort. She states she gets the palpitations and A Fib episode approximately 2 x per month and follows with Dr Angeles and Dr Morris in [place] and is scheduled for an ablation September 19 and a ALBINA 10/18/22. Patients she went into work and had a RN check her and her heart rate was raising to 200 -210 and she was scared and had an aide take her here to the ER. She states when she has the episodes of the A Fib her chest hurts and her symptoms are worse with exertion. Patient was treated with Cardizem bolus and drip and currently hr rate is in mid to low 90s and she states she no longer has any further chest pain. Patient is not on any alf anticoagulation, s/p Watchman and also patient states she was unable to tolerate Eliquis an Plavix in the past. Principal Dx & Hospital Course #1 = Principal Diagnosis (1) Paroxysmal atrial fibrillation with RVR: 77 year old [employer] with a past medical history of paroxysmal A Fib with ablation in 2007 and watchman procedure in July 2021, HTN, and DM who is also scheduled for an ablation 09/19/[address] Morris and a repeat ALBINA 10/18/[address] Angeles, here with rapid atrial fibrillation with rates in the 140s-200s Admitted to PCU and started on diltiazem gtt which improved rates to the 80s Increased po diltiazem to 180mg po daily--> rates remain 80s at rest and 120s with exertion - Consult cardiology appreciated-agreed with plan for rate control - Echocardiogram with mild LVH, no WMAs, EF 60-65% -troponin neg x 2 -continue po KCl supplement at home dose and increased magnesium to 400mg po bid to optimize -dc to home, no heavy exertion, keep appt for Afib ablation as scheduled in 4 weeks (2) Diabetes: - held home metformin and glimepiride while here but can restart on discharge - ISS while admitted - Pharmacy consult for glycemic control - HgbA1C well controlled at 7.1% (3) HTN (hypertension): BPs quite elevated on admission and have been high at times as an outpatient-improved now with increased diltiazem dose - Continue Losartan, metoprolol and HCTZ - Cartia XT changes as above Plan Dispo-dc to home Discharge Exam Constitutional WD/WN, vitals as above Respiratory normal respiratory effort, lungs clear to auscultation Cardiovascular Rate/Rhythm: regular rate and + irregularly irregular Heart Sounds: normal S1 and normal S2; no murmur Extremities: + pedal edema Updated Medication List Medication Instructions Recorded Confirmed Type aspirin 81 mg tablet,delayed 81 mg PO DAILY 08/14/22 08/14/22 History release diltiazem HCl 120 mg 120 mg PO DAILY 08/14/22 08/14/22 History capsule,extended release 24 hr (Cartia XT) glimepiride 1 mg tablet 1 mg PO DAILY 08/14/22 08/14/22 History hydrochlorothiazide 25 mg tablet 25 mg PO DAILY 08/14/22 08/14/22 History losartan 50 mg tablet 50 mg PO DAILY 08/14/22 08/14/22 History magnesium oxide 400 mg PO DAILY 08/14/22 08/14/22 History metformin 500 mg tablet,extended 1,000 mg PO QAM 08/14/22 08/14/22 History release 24 hr metoprolol succinate 50 mg 50 mg PO DAILY 08/14/22 08/14/22 History tablet,extended release 24 hr potassium chloride 10 mEq 30 meq PO BID 08/14/22 08/14/22 History capsule,extended release diltiazem HCl 180 mg 180 mg PO DAILY #30 caps 08/15/22 Rx capsule,extended release 24 hr Hospital Stay Data Consultations 08/14/22 08:39 ED Decision to Admit Stat 08/14/22 10:02 Consult Cardiology Stat 08/14/22 11:42 Consult Cardiology Routine Procedures Performed ECHO Pending Results Patient Have Any Pending Studies at Discharge: No Discharge Instructions Given to Patient (Per Discharging Provider) You were admitted with rapid atrial fibrillation and your diltiazem dose was increased to 180mg daily for better heart rate control. This also helped improve your elevated blood pressure. Please increase your magnesium dose to 400mg twice a day as well. Keep your scheduled ablation procedure for your atrial fibrillation in a few weeks. Total Time Total Time Spent Total Time Spent (In Minutes): 35 min Coding Level of Care Code 88194 INP/OBS DISCH >30 MIN Diagnoses Paroxysmal atrial fibrillation with RVR I48.0 Diabetes E11.9 HTN (hypertension) I10
== END 2022-08-15 18:49 | disposition home or self-care (01) ==
LOC: ED 06:26 → 2S 10:02 → INTOOBSV 10:02 → 2S 12:18